=== PATIENT | male | born 1940 | race Hispanic/Latino ===

== ENCOUNTER 2017-12-06 21:51 | Emergency (ER) | payer MEDICARE, MEDICAID ==
[2017-12-06 23:08] LABS: #Basophils 0.1 thou/uL (0.0-0.2); #Eosinphils 0.1 thou/uL (0.0-0.7); #Lymphocytes 1.8 thou/uL (1.20-3.40); #Monocytes 0.4 thou/uL (0.11-0.59); #Neutrophils 3.6 thou/uL (1.40-6.50); %Eosinophils 2.4 % (0.0-10.0); %Lymphocytes 29.9 % (21.0-51.0); %Monocytes 7.3 % (0.0-10.0); %Neutrophils 59.4 % (42.0-75.0); Hemoglobin 13.3 g/dL (14.0-18.0); Mean Corpuscular HGB CONC 34.6 g/dL (32.0-36.0); Mean Corpuscular Hemoglobin 31.6 pg (27.0-31.0); Mean Corpuscular Volume 91.5 fl (80.0-94.0); Mean Platelet Volume 8.1 fL (7.4-10.4); PLT Morphology Comment Appears Decreased; Platelet Count 105 thou/uL (130-400); RBC Distribution Width 12.7 % (11.5-14.5); Red Blood Cell (RBC) Count 4.21 mill/uL (4.70-6.10); White Blood Cell (WBC) Count 6.1 thou/uL (4.8-10.8)
[2017-12-06 23:11] LABS: CKMB 1.7 ng/mL (0-6.6); Troponin I 0.017 ng/mL (< 0.028)
--- NOTE | 2017-12-06 23:27 | CT ---
CT HEAD WITHOUT CONTRAST: Technique: Multiple axial tomograms were obtained through the head without IV enhancement. History: Numbness to left arm. Hypertension. Comparison: 2005 FINDINGS: There is mild cortical atrophy which is felt to be stable from 2005. There are bilateral earnest holes i n the frontal bones bilaterally which were present previously. There is no intracranial hemorrhage, m ass, or infarct. Sinuses and mastoids are well aerated. IMPRESSION: No acute abnormality. POS: [facility]
--- NOTE | 2017-12-06 23:29 | CT ---
CT CERVICAL SPINE: Technique: Multiple axial tomograms were obtained through the cervical spine with multiplanar reconst ruction. History: Neck pain. Left arm pain and numbness. FINDINGS: Cervical vertebrae maintain height and alignment. Moderate degenerative changes of the cervical spine noted. There is no evidence of fracture. Disc bulge and spondylosis impinge on the cord at C3-4, C4- 5, C5-6 and C6-7 levels. There is foraminal stenosis on the right at C3-4. Foraminal stenosis on the right at C5-6. Moderate right foraminal stenosis also noted at C6-7. IMPRESSION: Degenerative changes of the cervical spine as described. No fracture. POS: [facility]
[2017-12-07 00:49] LABS: ALT (SGPT) 17 U/L (8-55); AST (SGOT) 18 U/L (5-34); Albumin 3.7 g/dL (3.4-4.8); Alkaline Phosphatase 47 U/L (40-150); Anion Gap 12 mmol/L (10-20); BUN (Urea Nitrogen) 22 mg/dL (8.4-25.7); Bilirubin, Total 0.6 mg/dL (0.2-1.2); Calc. Creatinine Clearance 0 mL/min (70-130); Calcium 8.6 mg/dL (7.8-10.44); Carbon Dioxide 25 mmol/L (23-31); Chloride 105 mmol/L (98-107); Estimated GFR-MDRD 87; Glucose 112 mg/dL (83-110); Potassium 3.6 mmol/L (3.5-5.1); Protein, Total 6.7 g/dL (5.8-8.1); Sodium 138 mmol/L (136-145)
--- NOTE | 2017-12-12 22:42 | EKG ---
Test Reason : Blood Pressure : / mmHG Vent. Rate : 055 BPM Atrial Rate : 055 BPM P-R Int : 178 ms QRS Dur : 074 ms QT Int : 466 ms P-R-T Axes : 027 -13 010 degrees QTc Int : 445 ms Sinus bradycardia Minimal voltage criteria for LVH, may be normal variant Inferior infarct , age undetermined Abnormal ECG Confirmed by MATTIE ADHIKARI ([id number]), publications editor MANUEL POSADA ([id number]) on 12/12/2017 10:41:12 PM Referred By: Confirmed By:MATTIE ADHIKARI
== END 2017-12-07 00:33 | disposition home or self-care (01) ==
LOC: ERS 21:51
DX: M54.12 Radiculopathy, cervical region (principal); K02.9 Dental caries, unspecified; I11.0 Hypertensive heart disease with heart failure; I50.9 Heart failure, unspecified; Z79.82 Long term (current) use of aspirin; Z79.899 Other long term (current) drug therapy
CPT/HCPCS: 36415; 70450; 72125; 80053; 82553; 83880; 84484; 85025; 93005

== ENCOUNTER 2021-11-22 21:19 | Emergency (ER) | payer OTHER, MEDICARE, MEDICAID ==
[2021-11-22] MEDS ORDERED: HYDROcodone/Acetaminophen 5/325 mg Tablet ONE (22:00)
[2021-11-22 23:06] LABS: Troponin I 0.028 ng/mL (< 0.028)
== END 2021-11-22 23:20 | disposition home or self-care (01) ==
LOC: ERS 21:19
DX: R07.89 Other chest pain (principal); I11.0 Hypertensive heart disease with heart failure; I50.9 Heart failure, unspecified; E78.5 Hyperlipidemia, unspecified; E78.00 Pure hypercholesterolemia, unspecified; V43.52XA Car driver injured in collision with other type car in traffic accident, initial encounter; Z87.891 Personal history of nicotine dependence; Z79.82 Long term (current) use of aspirin; Z79.899 Other long term (current) drug therapy
CPT/HCPCS: 36415; 71045; 84484; 93005